=== PATIENT | male | born 1990 | race Caucasian/White ===

== ENCOUNTER 2017-09-13 08:05 | Emergency (ER) | payer SELFPAY ==
[2017-09-13] MEDS ORDERED: LIDOCAINE HCL-MPF 1% 2ML VIAL ONE (08:18)
[2017-09-13] MEDS ORDERED: CEFTRIAXONE SODIUM 1 GM ONE (08:19)
[2017-09-13] MEDS ORDERED: TETANUS/DIPHTHERIA TOXOID [ADULT] 0.5 ML VIAL IM ONE (08:20)
== END 2017-09-13 08:47 | disposition home or self-care (01) ==
LOC: EDH 08:05
DX: L03.116 Cellulitis of left lower limb (principal); Z72.0 Tobacco use
CPT/HCPCS: 90471; 90714; 96372; 99284; J0696; J3490